=== PATIENT | male | born 1935 | race Caucasian/White ===

== ENCOUNTER 2018-01-23 17:29 | Emergency (ER) | payer MEDICARE ==
--- NOTE | 2018-01-23 18:36 | Emergency Department Report ---
HPI - HPI HPI: Room 23 The patient is an 82-year-old male presenting with a chief complaint of abdominal pain and urinary retention. The patient states last time he was able to urinate was yesterday before noon. The patient states at approximately noon he is Developing suprapubic abdominal pain. Last night he attempted to urinate states only drops came out. Patient denies nausea or vomiting. Location: [See above] Duration: [See above] Quality: Pain, pressure Severity: Moderate Modifying factors: [see above] Context: [see above] Mode of transportation: [not driving] <CHIARA BOOTH - Last Filed: 01/23/18 19:51> <MIKE PEREZ - Last Filed: 01/23/18 21:21> - General Chief Complaint: Abdominal Pain Time Seen by Provider: 01/23/18 18:14 ED Past Medical Hx - Past Medical History Previous Medical History?: Yes Hx Hypertension: Yes Hx Asthma: Yes Additional medical history: high cholesterol - Surgical History Past Surgical History?: Yes Additional Surgical History: hernia repair. hydrocele. 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 growth on gallbladder - Family History Family history: no significant - Social History Smoking Status: Former Smoker (none 10 years) Substance Use Type: None <CHIARA BOOTH - Last Filed: 01/23/18 19:51> <MIKE PEREZ - Last Filed: 01/23/18 21:21> - Medications Home Medications: Home Medications Medication Instructions Recorded Confirmed Last Taken Type Ibuprofen [Motrin 800 MG tab] 800 mg PO Q8HR PRN #20 tablet 01/23/18 Unknown Rx traMADol [Ultram] 50 mg PO Q6HR PRN #14 tablet 01/23/18 Unknown Rx ED Review of Systems ROS: Stated complaint: C/O NO URINATION Other details as noted in HPI Constitutional: no symptoms reported Gastrointestinal: abdominal pain. denies: nausea, vomiting Musculoskeletal: denies: back pain <CHIARA BOOTH - Last Filed: 01/23/18 19:51> ROS: Stated complaint: C/O NO URINATION Other details as noted in HPI <MIKE PEREZ - Last Filed: 01/23/18 21:21> Physical Exam - Physical Exam Vital Signs: Vital Signs 01/23/18 17:49 Temperature 97.9 F Pulse Rate 80 Respiratory 18 Rate Blood Pressure 123/70 O2 Sat by Pulse 95 Oximetry Physical Exam: GENERAL: The patient is well-developed well-nourished male sitting on stretcher not appearing to be in acute distress. [] HEENT: Normocephalic. Atraumatic. Extraocular motions are intact. Patient has moist mucous membranes. NECK: Supple. Trachea midline CHEST/LUNGS: Clear to auscultation. There is no respiratory distress noted. HEART/CARDIOVASCULAR: Regular. There is no tachycardia. There is no gallop rub or murmur. ABDOMEN: Abdomen is soft, with suprapubic discomfort to palpation. No rebound or guarding. Patient has normal bowel sounds. There is no abdominal distention. SKIN: There is no rash. There is no edema. There is no diaphoresis. NEURO: The patient is awake, alert, and oriented. The patient is cooperative. The patient has normal speech MUSCULOSKELETAL: There is no CVA tenderness. There is no evidence of acute injury. <CHIARA BOOTH - Last Filed: 01/23/18 19:51> - Physical Exam Vital Signs: Vital Signs 01/23/18 01/23/18 01/23/18 17:49 18:38 18:40 Temperature 97.9 F Pulse Rate 80 Respiratory 18 16 Rate Blood Pressure 123/70 128/71 Blood Pressure [Left] O2 Sat by Pulse 95 100 Oximetry 01/23/18 01/23/18 01/23/18 19:20 19:22 19:30 Temperature 97.6 F Pulse Rate 70 Respiratory 16 Rate Blood Pressure 118/66 118/66 Blood Pressure 118/86 [Left] O2 Sat by Pulse 95 95 Oximetry 01/23/18 01/23/18 01/23/18 19:46 19:59 20:00 Temperature Pulse Rate Respiratory 16 Rate Blood Pressure 126/61 126/61 Blood Pressure [Left] O2 Sat by Pulse 95 95 Oximetry 01/23/18 01/23/18 01/23/18 20:28 20:30 20:46 Temperature Pulse Rate Respiratory Rate Blood Pressure 118/66 120/66 126/69 Blood Pressure [Left] O2 Sat by Pulse 97 94 94 Oximetry 01/23/18 21:00 Temperature Pulse Rate Respiratory Rate Blood Pressure 120/65 Blood Pressure [Left] O2 Sat by Pulse Oximetry <MIKE PEREZ - Last Filed: 05/17/18 21:21> ED Course Vital Signs 01/23/18 17:49 Temperature 97.9 F Pulse Rate 80 Respiratory 18 Rate Blood Pressure 123/70 O2 Sat by Pulse 95 Oximetry <CHIARA BOOTH - Last Filed: 01/23/18 19:51> Vital Signs 01/23/18 01/23/18 01/23/18 17:49 18:38 18:40 Temperature 97.9 F Pulse Rate 80 Respiratory 18 16 Rate Blood Pressure 123/70 128/71 Blood Pressure [Left] O2 Sat by Pulse 95 100 Oximetry 01/23/18 01/23/18 01/23/18 19:20 19:22 19:30 Temperature 97.6 F Pulse Rate 70 Respiratory 16 Rate Blood Pressure 118/66 118/66 Blood Pressure 118/86 [Left] O2 Sat by Pulse 95 95 Oximetry 01/23/18 01/23/18 01/23/18 19:46 19:59 20:00 Temperature Pulse Rate Respiratory 16 Rate Blood Pressure 126/61 126/61 Blood Pressure [Left] O2 Sat by Pulse 95 95 Oximetry 01/23/18 01/23/18 01/23/18 20:28 20:30 20:46 Temperature Pulse Rate Respiratory Rate Blood Pressure 118/66 120/66 126/69 Blood Pressure [Left] O2 Sat by Pulse 97 94 94 Oximetry 01/23/18 21:00 Temperature Pulse Rate Respiratory Rate Blood Pressure 120/65 Blood Pressure [Left] O2 Sat by Pulse Oximetry <MIKE PEREZ - Last Filed: 01/23/18 21:21> ED Medical Decision Making - Lab Data Result diagrams: 01/23/18 18:29 01/23/18 18:29 Laboratory Tests 01/23/18 01/23/18 01/23/18 18:29 18:29 18:35 WBC 13.2 H RBC 5.16 H Hgb 16.2 H Hct 47.0 H MCV 91 MCH 31 MCHC 35 H RDW 13.6 Plt Count 268 Lymph % (Auto) 9.0 L Calhoun % (Auto) 5.4 Eos % (Auto) 4.3 Baso % (Auto) 0.5 Lymph # 1.2 Calhoun # 0.7 Eos # 0.6 H Baso # 0.1 Seg Neutrophils % 80.8 H Seg Neutrophils # 10.7 H Sodium 139 Potassium 4.5 Chloride 96.6 L Carbon Dioxide 27 Anion Gap 20 BUN 16 Creatinine 0.6 L Estimated GFR > 60 BUN/Creatinine Ratio 27 Glucose 130 H Calcium 9.2 Total Bilirubin 1.10 AST 30 ALT 48 Alkaline Phosphatase 97 Total Protein 7.7 Albumin 4.6 Albumin/Globulin Ratio 1.5 Urine Color Straw Urine Turbidity Clear Urine pH 7.0 Ur Specific [place] 1.006 Urine Protein <15 mg/dl Urine Glucose (UA) Neg Urine Ketones Neg Urine Blood Neg Urine Nitrite Neg Urine Bilirubin Neg Urine Urobilinogen < 2.0 Ur Leukocyte Esterase Neg Urine WBC (Auto) < 1.0 Urine RBC (Auto) 5.0 - Differential Diagnosis urinary retention, prostatomegaly, bladder mass <CHIARA BOOTH - Last Filed: 01/23/18 19:51> - Lab Data Result diagrams: 01/23/18 18:29 01/23/18 18:29 - Medical Decision Making I spoke with patient. He has pelvic pain due to urinary retention. Gallstones were seen on CT scan. He does not have pain indicative of biliary colic. Family member provided interpretation. He is discharged home with Roy catheter. <MIKE PEREZ - Last Filed: 01/23/18 21:21> Critical care attestation.: If time is entered above; I have spent that time in minutes in the direct care of this critically ill patient, excluding procedure time. <CHIARA BOOTH - Last Filed: 01/23/18 19:51> Critical care attestation.: If time is entered above; I have spent that time in minutes in the direct care of this critically ill patient, excluding procedure time. <MIKE PEREZ - Last Filed: 01/23/18 21:21> ED Disposition <CHIARA BOOTH - Last Filed: 01/23/18 19:51> Is pt being admited?: No Does the pt Need Aspirin: No Time of Disposition: 21:21 <MIKE PEREZ - Last Filed: 01/23/18 21:21> Clinical Impression: Urinary retention due to benign prostatic hyperplasia Disposition: - TO HOME OR SELFCARE Condition: Stable Instructions: Urinary Retention in Men (ED), Acute Abdominal Pain (ED) Additional Instructions: Return to the emergency department immediately should you develop worsening symptoms, fever, inability to tolerate food or liquid or any other concerns. Prescriptions: Ibuprofen [Motrin 800 MG tab] 800 mg PO Q8HR PRN #20 tablet PRN Reason: Pain traMADol [Ultram] 50 mg PO Q6HR PRN #14 tablet PRN Reason: Pain Referrals: LACY SIERRA MD [Staff Physician] - [facility] (Dr. Sierra is a urologist. Please follow-up with him for further evaluation)
[2018-01-23 18:57] LABS: Basophils # (Auto) 0.1 K/mm3 (0.0-0.1); Basophils % (Auto) 0.5 % (0.0-1.8); Eosinophils # (Auto) 0.6 K/mm3 (0.0-0.4); Eosinophils % (Auto) 4.3 % (0.0-4.3); Hemoglobin 16.2 gm/dl (11.8-15.2); Lymphocytes # (Auto) 1.2 K/mm3 (1.2-5.4); Mean Corpuscular HGB Conc 35 % (32-34); Mean Corpuscular Hemoglobin 31 pg (28-32); Mean Corpuscular Volume 91 fl (84-94); Monocytes # (Auto) 0.7 K/mm3 (0.0-0.8); Monocytes % (Auto) 5.4 % (0.0-7.3); Platelet Count 268 K/mm3 (140-440); Red Blood Count 5.16 M/mm3 (3.65-5.03); Red Cell Distribution Width 13.6 % (13.2-15.2)
[2018-01-23 19:15] LABS: Alanine Aminotransferase 48 units/L (7-56); Albumin 4.6 g/dL (3.9-5); BUN/Creatinine Ratio 27; Blood Urea Nitrogen 16 mg/dL (9-20); Calcium 9.2 mg/dL (8.4-10.2); Hemolysis Index 14
[2018-01-23 19:28] LABS: Bilirubin,Urine NEG (Negative); Blood,Urine NEG (Negative); Color,Urine Straw (Yellow); Protein,Urine <15 mg/dL mg/dL (Negative); Urobilinogen,Urine < 2.0 mg/dL (<2.0); WBC,Urine < 1.0 /HPF (0.0-6.0)
[2018-01-23] MEDS ORDERED: NORCO 5/325 PO ONE (19:34)
--- NOTE | 2018-01-23 20:16 | Cat Scan Report ---
FINAL REPORT PROCEDURE: CT ABDOMEN PELVIS WO CON TECHNIQUE: Computerized axial tomography of the abdomen and pelvis was performed without intravenous contrast. This study is performed without intravascular contrast material and its sensitivity for abdominal and pelvic pathology, including neoplasms, inflammation, abscess, free fluid, thrombosis, arterial dissection and infarction, is reduced compared with a contrast enhanced study. HISTORY: lower abdominal pain, urinary retention COMPARISON: No prior studies are available for comparison. FINDINGS: Lower Lung márquez: There are irregular bands of increased density in the lung bases suggesting bands of atelectasis or parenchymal scars. Upper Abdomen: Large calcified gallstone visualized in the gallbladder. Gallbladder is otherwise unremarkable. The unenhanced images the liver show no focal abnormalities. Pancreas appears mildly atrophied otherwise is unremarkable. The spleen is not enlarged. The left adrenal gland showed no abnormality. There is a indeterminate nodular density in the right adrenal gland measuring 2.1 x 2.6 centimeter. This shows intermediate density, 35 Hounsfield units. Etiology is uncertain. This could represent a lipid poor adrenal adenoma however other masses, primary malignancy or metastatic disease could present this manner as well. If clinically indicated follow-up dynamic contrast-enhanced CT scan or MRI of the adrenal glands could be obtained for further evaluation. Kidneys, Ureters and Urinary bladder: Low-density nodules seen in the renal cortex of both kidneys which appear to represent renal cortical cyst. No definite solid masses calculi or hydronephrosis visualized. The ureters are not distended. No ureteral calculi are seen. Roy catheter is seen in the urinary bladder which is otherwise empty. Retroperitoneum: Atherosclerotic changes are seen in the abdominal aorta and iliac arteries.. No aneurysm is visualized. Nonspecific subcentimeter lymph nodes are seen in the retroperitoneum. No pathologically enlarged lymph nodes are identified. Bowel: No abnormalities are seen. No evidence of bowel obstruction ascites or free intraperitoneal gas. Normal-appearing appendix is seen in the mid pelvis.. Reproductive organs: There is mild nonspecific prostate enlargement. Other: No acute bony abnormalities are seen. IMPRESSION: Cholelithiasis. Large calcified gallstones seen in the gallbladder. Indeterminate nodular density right adrenal gland as described. Please see above comments. Small renal cortical cysts are visualized. Kidneys otherwise are unremarkable. Roy catheter seen in the urinary bladder which is otherwise empty. Mild nonspecific prostate enlargement..
[2018-01-23 22:28] VITALS: BP 108/52
== END 2018-01-23 22:29 | disposition home or self-care (01) ==
LOC: ED 17:29
DX: N40.1 Benign prostatic hyperplasia with lower urinary tract symptoms (principal); I10 Essential (primary) hypertension; J45.909 Unspecified asthma, uncomplicated; E78.00 Pure hypercholesterolemia, unspecified; Z87.891 Personal history of nicotine dependence
CPT/HCPCS: 36415; 74176; 80053; 81001; 85025

== ENCOUNTER 2018-02-05 09:52 | Outpatient (CLI) | payer MEDICARE ==
--- NOTE | 2018-02-05 11:07 | Cat Scan Report ---
FINAL REPORT EXAM: CT CHEST WO CON HISTORY: Pulmonary fibrosis TECHNIQUE: CT of chest without IV contrast. Coronal and sagittal reconstructed images provided. PRIORS: CT abdomen pelvis January 23, 2018. FINDINGS: 2.3 x 2.2 cm lobulated mass in the right upper lobe on series 3:75. 8.3 mm pleural based nodule or nodular scarring at the right lower lobe series 3:68. Mild linear scarring both lungs. No significant reticular markings. No honeycombing. No traction bronchiectasis. No centrilobular nodules. [id number] emphysema. No pneumothorax. No distinct consolidation. No endobronchial lesions. Ascending aorta measures 4.3 cm. Horizontal aorta measures 3.8 cm. Descending aorta measures 3.2 cm. [id number] aortic atherosclerotic disease. Major branch arteries are unremarkable. Prominent main pulmonary artery. Findings may be related to hypertension or pulmonary vascular congestion. Hypertension favored. Moderate cardiomegaly. Valvular calcifications. Coronary artery disease. Small pericardial effusion may be physiologic. Axillary regions are unremarkable. Single mildly prominent mediastinal lymph nodes is nonspecific and measures 8.3 mm in short axis diameter. No significant adenopathy or mass. Rim calcification noted in the large heterogeneous thyroid may represent a nodule. Images of the esophagus are unremarkable. Indeterminate right adrenal nodules unchanged compared to the prior. Gallbladder with gallstone noted. No suspicious osseous lesions on this limited examination of the skeleton. Metastatic disease better evaluated with bone scan. Degenerative changes are present in the spine. IMPRESSION: Mass in the right upper lobe. Further workup with PET-CT scan, biopsy, and or three-month interval follow-up is recommended. Nodularity versus scarring in the right lower lobe. Indeterminate right adrenal nodule. There is concern for possible malignancy. Thoracic aortic aneurysm. Suspect pulmonary hypertension. Cardiomegaly. Calvin level II finding report initiated.
== END 2018-02-05 09:53 | disposition home or self-care (01) ==
LOC: CT 09:52
PROVIDERS: ATTEND Internal Medicine Critical Care Medicine
DX: J43.8 Other emphysema (principal); J84.10 Pulmonary fibrosis, unspecified; J98.4 Other disorders of lung; I70.0 Atherosclerosis of aorta; I51.7 Cardiomegaly; I25.10 Atherosclerotic heart disease of native coronary artery without angina pectoris; I31.3 Pericardial effusion (noninflammatory); E27.8 Other specified disorders of adrenal gland; M47.899 Other spondylosis, site unspecified; K80.20 Calculus of gallbladder without cholecystitis without obstruction; I71.2 Thoracic aortic aneurysm, without rupture
CPT/HCPCS: 71250

== ENCOUNTER 2018-02-21 07:06 | Day surgery (SDC) | payer MEDICARE ==
[2018-02-21 09:06] LABS: Basophils # (Auto) 0.1 K/mm3 (0.0-0.1); Basophils % (Auto) 0.9 % (0.0-1.8); Eosinophils # (Auto) 0.6 K/mm3 (0.0-0.4); Hematocrit 42.2 % (35.5-45.6); Hemoglobin 14.3 gm/dl (11.8-15.2); Lymphocytes # (Auto) 1.3 K/mm3 (1.2-5.4); Lymphocytes % (Auto) 16.7 % (13.4-35.0); Mean Corpuscular HGB Conc 34 % (32-34); Mean Corpuscular Hemoglobin 31 pg (28-32); Mean Corpuscular Volume 91 fl (84-94); Monocytes # (Auto) 0.5 K/mm3 (0.0-0.8); Monocytes % (Auto) 6.6 % (0.0-7.3); Platelet Count 281 K/mm3 (140-440); Red Blood Count 4.64 M/mm3 (3.65-5.03)
[2018-02-21 09:28] LABS: INR 0.96 (0.87-1.13)
[2018-02-21 09:29] LABS: Partial Thromboplastin Time 35.4 Sec. (24.2-36.6)
[2018-02-21] MEDS ORDERED: VERSED IV NR (10:09)
[2018-02-21] MEDS ORDERED: SUBLIMAZE IV NR (10:09)
--- NOTE | 2018-02-21 12:24 | Cat Scan Report ---
CT BIOPSY LUNG RIGHT History: Right upper lobe mass. Description of procedure: Informed consent was obtained. The patient's niece served as an wringer operator. The patient was non-Welsh speaking. Sterile technique was utilized. Conscious sedation was accomplished with Versed and fentanyl. The patient was sedated for 20 minutes. Independent cardiorespiratory monitoring by RN. Intraobserver time was [address] guidance, a 19-gauge introducer needle was advanced to the leading edge of a 2.4 cm right upper lobe mass. 4 separate 20-gauge core biopsies were obtained for pathology. The samples were deemed adequate by the pathologist who was present in the CT suite. Followup scan demonstrated trainee right anterior pneumothorax estimated at less than 1%. A followup chest x-ray was ordered. Impression: Successful CT-guided biopsy of a 2.4 cm right upper lobe mass.
--- NOTE | 2018-02-21 14:37 | XRay Report ---
AP CHEST: HISTORY: Right upper lobe mass, recent CT-guided biopsy Recent CT-guided biopsy was performed on a right upper lobe mass. There is no evidence for pneumothorax. The remainder of the lungs are clear. Heart and mediastinal structures are within normal limits. IMPRESSION: No evidence for pneumothorax.
[2018-02-21 15:27] VITALS: BP 124/60
== END 2018-02-21 14:55 | disposition home or self-care (01) ==
LOC: CATHLABREC 07:06 → EDSTATUS 08:30 → CATHLABREC 14:55
PROVIDERS: ATTEND Internal Medicine Critical Care Medicine
DX: C34.11 Malignant neoplasm of upper lobe, right bronchus or lung (principal); Z79.01 Long term (current) use of anticoagulants
CPT/HCPCS: 32405; 36415; 71045; 77012; 85025; 85610; 85730; 88173; 88305; 88333; 88342; J2250; J3010

== ENCOUNTER 2018-03-07 07:48 | Outpatient (CLI) | payer MEDICARE | END 2018-03-07 07:49 | disposition home or self-care (01) | LOC: VAS 07:48 | DX: M79.661 Pain in right lower leg (principal); R22.41 Localized swelling, mass and lump, right lower limb; I10 Essential (primary) hypertension; J44.9 Chronic obstructive pulmonary disease, unspecified; E78.00 Pure hypercholesterolemia, unspecified ==

== ENCOUNTER 2018-03-20 07:23 | Outpatient (CLI) | payer MEDICARE ==
--- NOTE | 2018-03-21 10:21 | PET Report ---
PET/CT:03/20/18 07:23:00 CLINICAL: Right lung cancer staging RADIOPHARMACEUTICAL: 13.907mCi F18-FDG. COMPARISON: CT chest 02/05/[address] abdomen and pelvis 01/23/18 TECHNIQUE- Following intravenous injection of F-18 FDG and an approximately 60 minute uptake period, CT and PET images from the mid skull to the upper thighs were acquired with the patient in the fasted state. No contrast was administered. The CT protocol used for this PET CT study is designed for attenuation correction and anatomic localization of PET abnormalities. This workers' compensation claims examiner CT is not desired to produce and cannot replace, [id number] diagnostic CT scans with specific imaging protocols for different body parts and indications. Plasma glucose at the time of this test: 109g/dl. The standardized uptake values (SUV) are normalized to patient body weight and indicate the highest activity concentration (SUV max) in a given disease site. FINDINGS: Brain--Physiologic FDG uptake in the visualized regions of the brain. Neck--Physiologic FDG uptake in mucosal structures and benign FDG uptake in the right masseter muscle. Chest--Physiologic FDG uptake in mediastinal blood pool and myocardium. Lungs--An FDG avid right upper lobe anterior segment mass measures 2.8 x 2.4 x 3 cm with SUV 4.7. No other lung mass or nodule. Benign thickening of the inferior aspect of the right major fissure and a left lower lobe benign scar. Pleura/pericardium--No abnormal uptake. No pleural effusion. Thoracic nodes--No abnormal uptake and no lymphadenopathy. Hepatobiliary--No abnormal uptake. Liver background SUV mean, as a reference for comparing FDG studies, is 3.5 . No liver mass. Cholelithiasis with a 2.5 cm calculus in the gallbladder. Spleen--No abnormal uptake. Pancreas--No abnormal uptake. Adrenal Glands--No abnormal uptake. An oval smooth non-FDG avid right adrenal mass measures 2.5 x 2.1 cm and measures 45 Hounsfield units in density. Kidneys/Ureters/Bladder--No abnormal uptake. Abdominopelvic Nodes--No abnormal uptake. Bowel/Peritoneum/Mesentery--No abnormal uptake. Pelvic organs--No abnormal uptake. Bones/Soft Tissues--No abnormal uptake and no suspicious bone lesions. Other findings: A heavily calcified benign 2.1 cm right thyroid nodule. IMPRESSION- 1. A 3.1 cm FDG avid right upper lobe bronchogenic carcinoma. 2. No evidence of pulmonary, rolly, hepatic or skeletal metastasis. 3. A 2.5 cm non-FDG avid right adrenal mass is most likely a benign adrenal adenoma because of its morphology and the lack of FDG uptake but because of its higher density CT measurement, this examination is not conclusive in making that determination.
== END 2018-03-20 07:24 | disposition home or self-care (01) ==
LOC: PET 07:23
DX: R91.8 Other nonspecific abnormal finding of lung field (principal); J98.4 Other disorders of lung; K80.20 Calculus of gallbladder without cholecystitis without obstruction; E04.1 Nontoxic single thyroid nodule; I10 Essential (primary) hypertension; E78.00 Pure hypercholesterolemia, unspecified; J44.9 Chronic obstructive pulmonary disease, unspecified
CPT/HCPCS: 78815; 82962; A9552

== ENCOUNTER 2018-03-31 10:22 | Emergency (ER) | payer MEDICARE ==
[2018-03-31 11:18] LABS: Basophils # (Auto) 0.1 K/mm3 (0.0-0.1); Basophils % (Auto) 0.9 % (0.0-1.8); Eosinophils # (Auto) 1.2 K/mm3 (0.0-0.4); Eosinophils % (Auto) 13.3 % (0.0-4.3); Hematocrit 45.6 % (35.5-45.6); Hemoglobin 15.4 gm/dl (11.8-15.2); Lymphocytes # (Auto) 1.5 K/mm3 (1.2-5.4); Lymphocytes % (Auto) 16.7 % (13.4-35.0); Mean Corpuscular HGB Conc 34 % (32-34); Mean Corpuscular Hemoglobin 31 pg (28-32); Mean Corpuscular Volume 91 fl (84-94); Monocytes # (Auto) 0.6 K/mm3 (0.0-0.8); Monocytes % (Auto) 6.9 % (0.0-7.3); Platelet Count 251 K/mm3 (140-440); Red Blood Count 5.03 M/mm3 (3.65-5.03); Red Cell Distribution Width 13.6 % (13.2-15.2)
[2018-03-31 11:28] LABS: INR 0.92 (0.87-1.13)
[2018-03-31 11:29] LABS: Partial Thromboplastin Time 32.2 Sec. (24.2-36.6); Thrombin Time 18.1 Sec. (15.1-19.6)
--- NOTE | 2018-03-31 11:33 | Cat Scan Report ---
CT HEAD WITHOUT CONTRAST: HISTORY: Neurological deficit. TECHNIQUE: Sequential 2.5mm CT images. COMPARISON: none. FINDINGS: Cerebral Parenchyma: An approximate 3.2 x 2.5 cm mixed density hemorrhage is identified in the left basal ganglia region. There is evidence for acute, subacute and possibly chronic blood products. This probably represents an acute on chronic hemorrhage. An underlying hemorrhagic mass cannot be excluded. There is moderate surrounding edema with mass effect on the left lateral ventricle and midline shift measuring up to 5 mm at the level of the frontal horns. The remaining brain parenchyma is within normal limits. Cerebellum: Within normal limits. Brainstem: Within normal limits. Ventricles: No hydrocephalus. Sella: Normal. Extra-axial spaces: Normal. Basal Cisterns: Normal. Intracranial Hemorrhage: None. Midline Shift: None. Calvarium: Normal. Sinuses: Normal. Mastoid Air Cells: Normal. Visualized Orbits: Normal. IMPRESSION: Hemorrhage or hemorrhagic mass in the left basal ganglia region as described. These findings were discussed with Dr. Ivory was in the emergency department at 1124 hrs.
[2018-03-31 11:34] LABS: BUN/Creatinine Ratio 18; Blood Urea Nitrogen 9 mg/dL (9-20); Calcium 8.4 mg/dL (8.4-10.2); Hemolysis Index 10
[2018-03-31 11:38] LABS: Alanine Aminotransferase 23 units/L (7-56)
[2018-03-31 11:41] LABS: Bilirubin,Direct < 0.2 mg/dL (0-0.2)
[2018-03-31] MEDS ORDERED: DECADRON IV ONE (11:50)
--- NOTE | 2018-03-31 13:04 | Emergency Department Report ---
ED General Adult HPI - General Chief complaint: Neuro Symptoms/Deficit Stated complaint: GENERAL WEAKNESS Time Seen by Provider: 03/31/18 11:06 Source: family, EMS Mode of arrival: Stretcher Limitations: Language Barrier - History of Present Illness Initial comments: This is an 82 year old man with a history of lung cancer. He is a patient of Dr. GOODEN. He has received a first radiation therapy treatment. He has not received chemotherapy. 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 He had a CAT scan protocol PET which began at the skull last week. The patient had a first course of radiation therapy. For some strange reason the family thinks he is now cured of his cancer. They have limited understanding of any medical condition apparently. They are lumbee Amharic speaking. However at least to them in the room to speak reasonable amount of Macedonian. I spoke to Dr. GOODEN about the patient's current condition and the family for understanding as well. In any case, the family reports that they thought he had left facial drooping. He's had 3 episodes of choking. He has been able to walk but not like usual. He has "not been his usual self". However, he has not been complaining of headache. He's had no mono altered mental status. They deny any other neurological symptoms. At this point they do not identify the left facial drooping which they admit has apparently resolved. -: Gradual, days(s) Consistency: now resolved Improves with: none Worsens with: none Associated Symptoms: denies other symptoms (except as above indicated) - Related Data Previous Rx's Medication Instructions Recorded Last Taken Type Ibuprofen [Motrin 800 MG tab] 800 mg PO Q8HR PRN #20 tablet 01/23/18 Unknown Rx traMADol [Ultram] 50 mg PO Q6HR PRN #14 tablet 01/23/18 Unknown Rx Allergies Allergy/AdvReac Type Severity Reaction Status Date / Time No Known Allergies Allergy Unverified 03/31/18 10:52 ED Review of Systems ROS: Stated complaint: GENERAL WEAKNESS Other details as noted in HPI Comment: All other systems reviewed and negative (per car examiner patient has no complaints at this time nor otherwise prior. He is awake and verbal.) ED Past Medical Hx - Past Medical History Previous Medical History?: Yes Hx Hypertension: Yes Hx of Cancer: Yes (Lung) Hx Asthma: Yes Hx COPD: Yes Additional medical history: high cholesterol - Surgical History Past Surgical History?: Yes Additional Surgical History: hernia repair. hydrocele. 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 growth on gallbladder - Social History Smoking Status: Former Smoker Substance Use Type: None - Medications Home Medications: Home Medications Medication Instructions Recorded Confirmed Last Taken Type Ibuprofen [Motrin 800 MG tab] 800 mg PO Q8HR PRN #20 tablet 01/23/18 Unknown Rx traMADol [Ultram] 50 mg PO Q6HR PRN #14 tablet 01/23/18 Unknown Rx ED Physical Exam - General Limitations: Language Barrier General appearance: in no apparent distress, lethargic (perhaps slightly) - Head Head exam: Present: atraumatic, normocephalic - Eye Eye exam: Present: normal appearance, PERRL, EOMI. Absent: scleral icterus - ENT ENT exam: Present: mucous membranes moist - Neck Neck exam: Present: normal inspection. Absent: tenderness, meningismus - Respiratory Respiratory exam: Present: normal lung sounds bilaterally. Absent: respiratory distress - Cardiovascular Cardiovascular Exam: Present: regular rate, normal rhythm. Absent: systolic murmur, diastolic murmur, rubs, gallop - GI/Abdominal GI/Abdominal exam: Present: soft, normal bowel sounds. Absent: distended, tenderness, guarding, rebound, rigid - Rectal Rectal exam: Present: deferred - Extremities Exam Extremities exam: Present: normal inspection - Back Exam Back exam: Present: normal inspection - Neurological Exam Neurological exam: Present: alert, oriented X3, CN II-XII intact, other (the patient is not fine to have a mono focal neurological deficit. His NIH stroke score is 0) - Psychiatric Psychiatric exam: Present: normal mood, flat affect - Skin Skin exam: Present: warm, dry, intact, normal color. Absent: rash ED Course Vital Signs 03/31/18 03/31/18 03/31/18 10:45 12:09 12:15 Temperature 97.4 F L Pulse Rate 66 65 Respiratory 16 18 Rate Blood Pressure 119/70 119/70 112/61 O2 Sat by Pulse 95 95 95 Oximetry 03/31/18 12:30 Temperature Pulse Rate 67 Respiratory 18 Rate Blood Pressure 129/63 O2 Sat by Pulse 96 Oximetry - Reevaluation(s) Reevaluation #1: The patient was found to have CT findings as above. I felt that Decadron would possibly be of value. He was given 8 mg IV. I spoke to the neurointensivist this Dr. Still. He was kind enough to accept the patient to the neuro ICU at [facility]. I spoke to Dr. GOODEN about this and he was in agreement with the transfer. 03/31/18 13:09 Reevaluation #2: Patient remains clinically stable. 03/31/18 13:48 ED Medical Decision Making - Lab Data Result diagrams: 03/31/18 11:00 03/31/18 11:00 Laboratory Results - last 24 hr 03/31/18 03/31/18 03/31/18 11:00 11:00 11:00 WBC 8.9 RBC 5.03 Hgb 15.4 H Hct 45.6 MCV 91 MCH 31 MCHC 34 RDW 13.6 Plt Count 251 Lymph % (Auto) 16.7 Hardin % (Auto) 6.9 Eos % (Auto) 13.3 H Baso % (Auto) 0.9 Lymph # 1.5 Hardin # 0.6 Eos # 1.2 H Baso # 0.1 Seg Neutrophils % 62.2 Seg Neutrophils # 5.5 PT 12.8 INR 0.92 APTT 32.2 Thrombin Time 18.1 Sodium 140 Potassium 3.8 Chloride 102.9 Carbon Dioxide 25 Anion Gap 16 BUN 9 Creatinine 0.5 L Estimated GFR > 60 BUN/Creatinine Ratio 18 Glucose 103 H POC Glucose Calcium 8.4 Magnesium Total Bilirubin Direct Bilirubin Indirect Bilirubin AST ALT Alkaline Phosphatase Troponin T < 0.010 Total Protein Albumin Albumin/Globulin Ratio 03/31/18 03/31/18 11:00 11:06 WBC RBC Hgb Hct MCV MCH MCHC RDW Plt Count Lymph % (Auto) Hardin % (Auto) Eos % (Auto) Baso % (Auto) Lymph # Hardin # Eos # Baso # Seg Neutrophils % Seg Neutrophils # PT INR APTT Thrombin Time Sodium Potassium Chloride Carbon Dioxide Anion Gap BUN Creatinine Estimated GFR BUN/Creatinine Ratio Glucose POC Glucose 101 Calcium Magnesium 2.10 Total Bilirubin 0.70 Direct Bilirubin < 0.2 Indirect Bilirubin 0.5 AST 20 ALT 23 Alkaline Phosphatase 79 Troponin T Total Protein 6.6 Albumin 4.0 Albumin/Globulin Ratio 1.5 - Radiology Data Radiology results: report reviewed interpreted by me: Cerebral Parenchyma: An approximate 3.2 x 2.5 cm mixed density hemorrhage is identified in the left basal ganglia region. There is evidence for acute, subacute and possibly chronic blood products. This probably represents an acute on chronic hemorrhage. An underlying hemorrhagic mass cannot be excluded. There is moderate surrounding edema with mass effect on the left lateral ventricle and midline shift measuring up to 5 mm at the level of the frontal horns. Critical Care Time: Yes Critical care time in (mins) excluding proc time.: 60 Critical care attestation.: If time is entered above; I have spent that time in minutes in the direct care of this critically ill patient, excluding procedure time. ED Disposition Clinical Impression: Intracranial hemorrhage, Lung cancer metastatic to brain Disposition: DC/TX-70 ANOTHER TYPE HLTHCARE Is pt being admited?: No Does the pt Need Aspirin: No Condition: Stable Referrals: PRIMARY CARE, [Primary Care Provider] - 3-5 Days Time of Disposition: 13:48
[2018-03-31 13:43] VITALS: BP 136/65
--- NOTE | 2018-03-31 14:00 | XRay Report ---
AP CHEST: HISTORY: Hypertension Borderline to mild cardiomegaly and mild central pulmonary venous congestion are unchanged since 02/21/18. The lungs are clear. No evidence for pneumonia, pleural effusion or pneumothorax. The bony structures are grossly intact. IMPRESSION: Cardiomegaly and pulmonary venous congestion but no CHF.
== END 2018-03-31 14:55 | disposition other institution (70) ==
LOC: ED 10:22
DX: I62.9 Nontraumatic intracranial hemorrhage, unspecified (principal); C34.90 Malignant neoplasm of unspecified part of unspecified bronchus or lung; C79.31 Secondary malignant neoplasm of brain; I10 Essential (primary) hypertension; J44.9 Chronic obstructive pulmonary disease, unspecified; E78.00 Pure hypercholesterolemia, unspecified; Z87.891 Personal history of nicotine dependence
CPT/HCPCS: 36415; 70450; 71045; 80048; 80074; 82962; 83735; 84484; 85025; 85610; 85670; 85730; 93005; 93010; 96374; 99291; J1100

== ENCOUNTER 2018-04-04 10:40 | Outpatient (CLI) | payer MEDICARE | END 2018-04-04 10:41 | disposition home or self-care (01) | LOC: LABHHL 10:40 | DX: C34.11 Malignant neoplasm of upper lobe, right bronchus or lung (principal); C7A.8 Other malignant neuroendocrine tumors; I10 Essential (primary) hypertension; E78.00 Pure hypercholesterolemia, unspecified; J45.909 Unspecified asthma, uncomplicated; Z87.891 Personal history of nicotine dependence | CPT/HCPCS: 88342 ==

== ENCOUNTER 2018-04-29 10:51 | Emergency (ER) | payer MEDICARE ==
[2018-04-29] MEDS ORDERED: DUONEB *Not for PRN Use IH ONE ×2 (12:05→16:06)
--- NOTE | 2018-04-29 12:30 | XRay Report ---
AP CHEST: HISTORY: Dyspnea, lung cancer The lungs are hyperinflated consistent with underlying emphysema. The lungs are generally clear otherwise. No obvious mass or infiltrate. No pleural effusion or pneumothorax. Mild cardiomegaly is stable since 03/31/18. IMPRESSION: Emphysematous changes. Mild cardiomegaly.
--- NOTE | 2018-04-29 12:41 | Emergency Department Report ---
HPI - General Chief Complaint: Dyspnea/Respdistress Time Seen by Provider: 04/29/18 11:19 - HPI HPI: The patient is a 83-year-old male with a significant history of squamous cell lung carcinoma, and COPD, who presents for evaluation of dyspnea. The patient is currently receiving radiation for treatment of his cancer. The patient reports constant severe dyspnea since yesterday evening at the receiving radiation treatment. His dyspnea is exacerbated with exertion or activity, improved with supplemental oxygen. The patient's family at bedside shares that the patient was found to have blueness of the lips and central face this morning , prompting EMS call. They also report that the patient has consumed very little nutrition intake the past day. They share that the patient is scheduled to receive arrangement of home O2, but has not received home O2 thus. The patient is new oncologist is Dr. Greta Gregory at [place]. The patient denies fever , sore throat, chest pain, hemoptysis, unilateral leg swelling, chills, night sweats. ED Past Medical Hx - Past Medical History Previous Medical History?: Yes Hx Hypertension: Yes Hx Asthma: Yes Hx COPD: Yes Additional medical history: high cholesterol - Surgical History Past Surgical History?: Yes Additional Surgical History: hernia repair. hydrocele. 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 growth on gallbladder - Social History Smoking Status: Unknown if ever smoked Substance Use Type: None - Medications Home Medications: Home Medications Medication Instructions Recorded Confirmed Last Taken Type Famotidine [Pepcid] 20 mg PO Q12H 04/29/18 04/29/18 Unknown History Finasteride [Proscar] 5 mg PO QDAY 04/29/18 04/29/18 Unknown History Ipratropium/Albuterol Sulfate 1 ampul IH Q6HR 04/29/18 04/29/18 Unknown History [DUONEB *Not for PRN Use*] ED Review of Systems ROS: Stated complaint: D.I.B Other details as noted in HPI Constitutional: denies: fever ENT: denies: throat or neck pain Respiratory: denies: cough reports shortness of breath Cardiovascular: denies: chest pain Endocrine: denies unexplained weight loss or gain Gastrointestinal: denies: abdominal pain, nausea Genitourinary: denies: dysuria Musculoskeletal: denies: leg swelling Skin: denies: rash Neurological: denies: headache Hematological/Lymphatic: denies: easy bleeding or easy bruising Psych: denies sadness or hopelessness Physical Exam - Physical Exam Vital Signs: Vital Signs 04/29/18 11:09 Temperature 97.8 F Pulse Rate 89 Respiratory 24 Rate Blood Pressure 124/71 O2 Sat by Pulse 95 Oximetry Physical Exam: General: well-nourished, well-developed, no acute distress Head: Normocephalic, atraumatic Eyes: normal sclera ENT: Mucous membranes are pale and dry Neck: trachea midline, neck supple, No neck stiffness, no cervical adenopathy Respiratory: Diminished breath sounds and wheezing present throughout lung márquez bilaterally, mild costal retractions Cardio: S1 and S2 present, no murmurs, rubs, gallops, capillary refill is delayed Abdomen: Normoactive bowel sounds, soft abdomen, no rigidity, no guarding or rebound tenderness Musc: No pitting edema Skin: No rash Neuro: no facial drooping, normal speech Psych: Normal affect ED Course Vital Signs 04/29/18 11:09 Temperature 97.8 F Pulse Rate 89 Respiratory 24 Rate Blood Pressure 124/71 O2 Sat by Pulse 95 Oximetry ED Medical Decision Making - Lab Data Result diagrams: 04/29/18 12:19 04/29/18 12:19 - Medical Decision Making The patient was seen and examined by myself. The patient is placed on a powertrain design engineer and continuous pulse ox. On initial evaluation, the patient was found to be in no distress. Evaluation orders were placed. The patient is found to have low oxygen saturation on pulse oximetry on room air. ABG reveals hypoxemia, PO2 56. The patient is placed back on supplemental oxygenation and given a duoneb breathing treatment and by mouth prednisone. Chest x-ray reveals emphysematous changes. Lab results are grossly unrevealing. As the patient is hypoxemic and requiring supplemental oxygen, he will be admitted for continued supplemental oxygen and close cardio pulmonary monitoring. As the patient is scheduled for radiation therapy tomorrow at [facility], he patient will be transferred to [place] for continued care his continued resuscitation. The on-call medical oncologist Dr. Horner at [facility] was contacted. She agrees to a transfer the patient. The patient will be transferred in guarded condition. Critical care attestation.: If time is entered above; I have spent that time in minutes in the direct care of this critically ill patient, excluding procedure time. ED Disposition Clinical Impression: Acute respiratory failure with hypoxemia, Acute exacerbation of chronic obstructive pulmonary disease (COPD), Dehydration, mild Disposition: DC/TX-70 ANOTHER TYPE HLTHCARE Is pt being admited?: No Does the pt Need Aspirin: No Condition: Fair Instructions: Chronic Obstructive Pulmonary Disease (ED) Referrals: PRIMARY CARE, [Primary Care Provider] - 3-5 Days Time of Disposition: 13:27
[2018-04-29 12:52] LABS: Hematocrit 43.8 % (35.5-45.6); Mean Corpuscular HGB Conc 34 % (32-34); Mean Corpuscular Hemoglobin 31 pg (28-32); Mean Corpuscular Volume 90 fl (84-94); Platelet Count 161 K/mm3 (140-440); Red Blood Count 4.85 M/mm3 (3.65-5.03); Red Cell Distribution Width 14.4 % (13.2-15.2)
[2018-04-29 13:06] LABS: BUN/Creatinine Ratio 32; Blood Urea Nitrogen 19 mg/dL (9-20); Calcium 8.2 mg/dL (8.4-10.2); Hemolysis Index 5
[2018-04-29] MEDS ORDERED: DELTASONE PO ONE (13:28)
[2018-04-29 13:47] LABS: Anisocytosis 1+; Band Neutrophils # (Manual) 0.2 K/mm3; Basophils % (Manual) 0 % (0.0-1.8); Macrocytosis Few; Total Cells Counted 100
[2018-04-29 13:48] LABS: Ovalocytes Few; Platelet Estimate Consistent w Auto
[2018-04-29] MEDS ORDERED: NACL 0.9% 500 ML 500 ML IV ONE (16:21)
[2018-04-29 19:05] VITALS: BP 117/63
== END 2018-04-29 19:00 | disposition other institution (70) ==
LOC: ED 10:51
DX: J96.01 Acute respiratory failure with hypoxia (principal); J44.1 Chronic obstructive pulmonary disease with (acute) exacerbation; E86.0 Dehydration; I10 Essential (primary) hypertension; E78.00 Pure hypercholesterolemia, unspecified; Z85.528 Personal history of other malignant neoplasm of kidney
CPT/HCPCS: 36415; 71045; 80048; 82803; 83880; 84484; 85007; 85025; 93005; 93010; 94640; 99285; J7040; J7512